=== PATIENT | female | born 1995 | race Caucasian/White ===

== ENCOUNTER 2025-09-28 06:21 | Day surgery (SDC) | payer OTHER, SELFPAY ==
[2025-09-13 11:04] LABS: Hematocrit 38.8 % (37.0-47.0); Hemoglobin 13.2 g/dL (12.0-16.0); Mean Corp Hgb Conc. 34.0 g/dL (33.0-37.0); Mean Corpuscular Volume 90.7 fL (81.0-99.0); Nucleated Red Blood Cells % 0 %; Platelet Count 302 10^3/uL (130-400); Red Cell Dist. Width 12.6 % (11.5-14.5)
[2025-09-13 11:12] LABS: HCG, Serum Qualitative Screen Negative
--- NOTE | 2025-09-27 12:07 | HPS.HSE ---
Family Physician
-
Family Physician: Orion Palmer MD
Chief Complaint
-
tubal
History of Present Illness
Patient is a 29yo who presents for laparoscopic bilateral salpingectomy. She says she has been considering this for a while and knew that her son was her last child. She declines other forms of contraception.
PMHx: denies
Meds: B2 vit
NKDA
Surghx: denies
Socialhx: tobacco twice per month, denies etoh or illicit drug use
Famhx: ovarian cancer- maternal grandmother, maternal grandfather w/ lung cancer, biological father w/ non-hodgkin's lymphoma
OBHx: , FT SVDx2
Gynhx: LMP 07/25, previously Depo, denies history of STDs or abnormal Pap smears
Medical History
Past Medical History
Past Medical History: Reports None
Past Surgical History: Reports None
Social History
Tobacco: Smoker
Alcohol: None
Drug: None
Family History
Family History: Other
Allergies / Home Medications
Allergies reflects when Allergies were last updated in [employer].
Home Medications with original date entered in [employer]
Allergy/Medication List:
NKDA
Meds: Vit B2
Review of Systems
-
A 12 point ROS was completed and negative except as noted: Yes
Physical Exam
Physical Exam
General: Well Developed and Well Nourished
HEENT: NormoCephalic
Respiratory: Non Labored Respirations
Cardiac: Regular Rhythm
GI: Soft and Non Tender
Skin: Warm and Dry
Neuro: Awake and Alert
Psych: Calm
Laboratory Results
-
09/13/25 09:20
Impression/Plan
-
IMPRESSION:
Patient is a 30yo presents for laparoscopic bilateral salpingectomy
PLAN:
- Patient has completed her family status and desires permanent sterilization. She is aware it is a permanent procedure and she will no longer be able to conceive children naturally. Also aware if she were to get , there is a high risk of
ectopic . She declines other forms of contraception
- Risks, benefits and alternatives to the procedure reviewed including bleeding, infection, damage to surrounding structures, need to convert to an open procedure, and need for future operations. Blood consent reviewed and signed. Surgical consents
signed
- Medicaid consent signed in office previously
[2025-09-28] VITALS (9 sets, daily range): BP systolic 105–140; BP diastolic 56–97; BMI 28.0
[2025-09-28] MEDS: TYLENOL 1000 MG PO (10:24)
[2025-09-28 10:28] LABS: HCG, Urine Qualitative Screen Negative
[2025-09-28] MEDS: NORMOSOL-R/PLASMALYTE-A 1000 IV (10:46)
--- NOTE | 2025-09-28 17:55 | OR.RPT ---
Operative Report
Operative Report
Date of procedure: 09/28/2025
Preop diagnosis: Desires permanent sterilization
Postop diagnosis: same
Procedure: Laparoscopic bilateral salpingectomy
Surgeon: Tasha Clark DO
Storage And Backup Administrator: CARLOS MANUEL Sanches
Anesthesia: General
EBL: 5cc
Findings:
- Bimanual exam with normal sized anteverted uterus, no adnexal masses
- Normal appearing cervix without lesions or masses
- Normal appearing uterus, bilateral fallopian tubes and ovaries
Complications: none
Pathology: right and left fallopian tubes
Indication: Patient is a 30yo who presents for schedule laparoscopic bilateral salpingectomy. She has completed her family status and desires permanent sterilization. She was counseled on other options for contraception, including LARCs and
declined. She was counseled on the risks, benefits and alternatives and consents were previously signed in the office. She is aware it is a permanent procedure and she can no longer conceive children naturally.
Procedure: Patient was taken to the operating room and placed under general anesthesia. She was placed in the dorsal lithotomy position with Kt type stirrups. She was prepped and draped in the normal sterile fashion. The vagina was prepped with
Betadine and the abdomen with ChloraPrep. The bladder was drained with a straight catheter yielding 50cc of clear urine. Rae retractors were placed in the posterior and anterior aspects of the vagina revealing good visualization of the cervix. The
cervix was grasped with a single tooth tenaculum. The uterus was sounded to 8cm. The cervix was sequentially dilated. A Humi manipulator was introduced to the fundus. The tenaculum was removed from the cervix.
Gloves were changed and attention was turned to the abdomen. A 5mm incision was made inferior to the umbilicus. Veress needle was introduced and intraabdominal pressure was <5mmHg. The abdomen was insufflated to 15mmHg. A 5mm Optiview trocar was
inserted under direct visualization. Abdominal survey revealed the aforementioned findings. Two 5mm accessory Optiview trocar were placed under direct visualization in the right and left lower quadrants. The left fallopian tube was followed out to
the fimbriated end. The left fallopian tube was removed in a stepwise fashion along the mesosalpinx with the LigaSure device. The left fallopian tube was removed through the accessory trocar and sent to pathology. The right fallopian tube was then
followed out to the fimbriated end and removed in a similar fashion. The fallopian tube was removed through the accessory trocar and sent to pathology. The salpingectomy sites were examined and were hemostatic. The trocars were removed under direct
visualization. The abdomen was desufflated. Port sites were closed using single interrupted stitches with 4-0 Monocryl. Incisions were covered with skin glue. The uterine manipulator was removed. The cervix was hemostatic. All instruments were
removed from the vagina. Counts were correct. The patient was awakened from anesthesia and transferred to PACU in stable condition.
== END 2025-09-28 16:35 | disposition home or self-care (01) ==
LOC: SDS 06:21
PROVIDERS: ATTENDING PHYSICIAN Student in an Organized Health Care Education/Training Program; FAMILY PHYSICIAN Family Medicine
DX: Z30.2 Encounter for sterilization (principal)
CPT/HCPCS: 58661; 36415; 81025; 84703; 85025; 86850; 86900; 86901; 88302